=== PATIENT | male | born 1945 | race Caucasian/White ===

== ENCOUNTER 2016-11-26 12:55 | Inpatient (IN) | payer OTHER, MEDICARE ==
[~2016-11-26] VITALS: Ht 177.8 cm; Wt 118.1 kg
--- NOTE | ~2016-11-26 | H ---
[facility] [place] [address] HISTORY AND PHYSICAL Name: BENJAMIN VÁSQUEZ Room #: 506-1 ADM IN M.R.#: [id number] Admission: 11/26/16 Attend Phys: Chacho Chacon MD Discharge: Date of : 49 Report #: [id number] THIS REPORT FOR: //name// CC: Chacho Blanchard DATE OF SERVICE: 11/26/2016 HISTORY OF PRESENT ILLNESS: The patient is a 70-year-old white male with history of diabetes mellitus, originally admitted with syncope was noted to be in septic shock. He was in acute respiratory failure, noninvasive positive pressure ventilation, noted to have acute renal failure. He had a kidney biopsy that showed acute tubular necrosis and has needed hemodialysis. He had atrial fibrillation, was placed on a Cardizem drip, converting to normal sinus rhythm. He was noted to have a left-sided retroperitoneal bleed. He had thrombocytopenia with hematology involved. He is noted to have medical complexity with generalized debilitation and has now been admitted for acute in-hospital inpatient rehabilitation. PAST MEDICAL HISTORY: Includes a pacemaker for bradycardia, history of hypertension, hyperlipidemia, cholecystectomy, TNA and he had a history of obstructive sleep apnea and was on CPAP at 4 liters at bedtime. ALLERGIES: No known drug allergies. HABITS: Former smoker five cigarette a day for 25 years, remote history of increased alcohol use. SOCIAL HISTORY: Lives in the house with his , 2 steps in, did not utilize any gait aids. 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 is noted to be essentially retired as well. She was working before, but had noted she could take some time off and present to assist him. REVIEW OF SYSTEMS: No current complaints of chest pain, shortness of breath or abdominal discomfort. No focal extremity pain complaints. PHYSICAL EXAMINATION: GENERAL: A 70-year-old white male in no obvious distress. The patient is alert. VITAL SIGNS: Last recorded temperature is 97.9, pulse 107, respirations 24, blood pressure 152/95. HEENT: Appeared to be benign. NEUROLOGIC: Cranial nerves are grossly intact. Facies are symmetric. He is currently on 5 liters nasal cannula. CHEST: Some decreased breath sounds diffuse. CARDIAC: Sounded regular rate and rhythm. [facility] [address] [place] [address] HISTORY AND PHYSICAL Name: BENJAMIN VÁSQUEZ Room #: 506-1 ADM IN .R.#: [id number] Admission: 11/26/16 Attend Phys: Chacho Chacon MD Discharge: Date of : 47 Report #: [id number] ABDOMEN: Bowel sounds positive, nontender. He is mildly obese. GENITOURINARY AND RECTAL: Deferred. EXTREMITIES: He has functional range of motion of both upper extremities with strength grade 4 to 4-/5. DTRs are trace to 1. Lower extremities, no focal calf swelling, functional range of motion with strength grade 4-/5. DTRs are trace to 1. He does need assistance with basic functional mobility skills. ASSESSMENT: 1. Medical complexity with generalized debilitation. 2. Sepsis. 3. Acute respiratory failure with respiratory acidosis. He continues on high dose nasal prong O2. 4. Syncopal episode. 5. Atrial fibrillation with rapid ventricular rate, which converted to normal sinus rhythm. 6. Acute renal failure with hemodialysis as per Nephrology. 7. Left retroperitoneal bleed. 8. Thrombocytopenia with Hematology involved. 9. Obstructive sleep apnea, on CPAP. PLAN: The patient is admitted for acute in-hospital inpatient rehabilitation. From a postadmission physician evaluation perspective, there are no relevant changes since the preadmission screening. Please see the above review of prior and current medical and functional conditions and comorbidities. Please see the patient's previous and current functional status. As far as risk of complications, the patient has multiple medical comorbidities as noted above. Initial plan of care involves the interdisciplinary acute inpatient rehabilitation program with the goal of maximizing the patient's functional independence, so that he can hopefully return back to his prior living situation. Prognosis is reasonably good with estimated length of stay, probably at least the next 7-10 days, pending progress with likely longer if warranted with his medical comorbidities. Potential barriers would include his multiple medical comorbidities and decreased functional status. The patient meets diagnostic criteria for an acute in-hospital inpatient rehabilitation stay. He meets medical necessity criteria. He does have appropriate tolerance for therapies and has appropriate discharge goals back to the home setting. Again, there are no relevant changes since the preadmission screening. <ELECTRONICALLY SIGNED> By: Chacho Chacon MD 12/03/16 1105 0936 1052 Chacho Chacon MD /[facility]
--- NOTE | ~2016-11-26 | HC ---
[facility] [place] [address] CONSULTATION Name: BENJAMIN VÁSQUEZ Room #: 506-1 ADM IN M.R.#: [id number] Admission: 11/26/16 Attend Phys: Chacho Chacon MD Discharge: Date of : 47 Report #: [id number] THIS REPORT FOR: //name// CC: Chacho Blanchard DATE OF SERVICE: 12/01/2016 ATTENDING PHYSICIAN: Chacho Chacon M.D. DEVELOPMENT DISABILITY SPECIALIST: Irwin Nick, PhD CLINICAL PRESENTATION: The patient is a 71-year-old male, admitted to the rehabilitation unit at [facility] for comprehensive inpatient rehabilitation program to improve functional mobility, activities of daily living and self-care and mental status secondary to medical complexity with generalized debilitation. His diagnoses include sepsis, acute respiratory failure with respiratory acidosis, syncopal episode, atrial fibrillation with rapid ventricular rate converted to normal sinus rhythm, acute renal failure on hemodialysis, left retroperitoneal bleed, thrombocytopenia and obstructive sleep apnea. The patient was at home with his when he is reported to have become unresponsive. 911 was called and he was subsequently admitted to the hospital for evaluation and treatment. The patient is amnestic regarding his initial hospitalization and stay. A complete description of his medical condition and history along with medications can be found in his medical record. Neuropsychological consultation was requested to provide assistance in the assessment of cognitive and emotional status and to provide recommendations and services. Prior to this most recent admission, he was living independently with his in their home. He reports being independent with instrumental activities of daily living including driving. 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 He is a college graduate with a degree in literature. The patient has two children. He does not have a history of treatment for depression or anxiety. TECHNIQUES UTILIZED: Clinical interview, review of medical records, staff consultation and behavioral observation, Mini Mental Status Exam 2 standard version, calibrated ideational fluency assessment (letter and category fluency). EXAMINATION FINDINGS: The patient was alert and cooperative with the assessment. He does not present with aphasia. There is no report of auditory or visual hallucinations. He was alert and oriented. Current symptoms include decreased energy level with tiredness, fatigue and shortness of breath, and difficulty with sleep from pain. He does not report difficulty with memory or general cognition. However, reduced verbal fluency is reported, although he [address] [address] CONSULTATION Name: BENJAMIN VÁSQUEZ Room #: [address] [place] [address] IN ..#: [id number] Admission: 11/26/16 Attend Phys: Chacho Chacon MD Discharge: Date of : 47 Report #: [id number] it is within normal limits. He denies subjective depression, but does report increased anxiety in regard to his medical well being. His performance on the MMSE 2 brief version is within normal limits with a raw score of 16/16. Performance on the MMSE 2 standard version is within normal limits with a raw score of 29/30. The patient had difficulty with copying a simple geometric design. Clock drawing was within normal limits. Letter fluency is in the average range with a raw score of 26, T score of 44, percentile rank of 27. Category fluency is extremely low with a raw score of 27, T score 28, percentile rank of 1. Overall verbal fluency is in the borderline range with a T score of 34, and percentile rank of 5. The patient is alert and oriented. However, deficits in verbal fluency are suggested. The implications of variability in verbal fluency are difficulty with higher level executive functioning. DIAGNOSTIC IMPRESSION: Mild neurocognitive disorder, unspecified, without behavior disorder. Adjustment disorder with anxious mood. RECOMMENDATIONS: The patient will benefit from continued psychological support to assist in the management of anxiety. The use of relaxation strategies, reassurance and educational information about his medical condition will help alleviate anxiety. Providing him with written instructions and educational information regarding his medical condition will provide a degree of reassurance and subjective control. Followup neuropsychological testing is indicated prior to his return to instrumental activities of daily living. Educational information regarding his medical care will be necessary for his to the exent of her assisting in the management of medication and nutrition upon his return to home. Thank you very much for allowing me to provide the consultation on this patient. <ELECTRONICALLY SIGNED> By: Irwin Nick, PhD 12/01/16 1502 1246 1314 Irwin Ncik, PhD /nt
--- NOTE | ~2016-11-26 | EKG ---
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 : 1945 Requested By: Bassem Sparrow Order Number: [id number] MD: Warner Anguiano Measurements Intervals [place] Rate: 83 P: 0 NC: 57 QRS: 5 QRSD: 83 T: 64 QT: 380 QTc: 447 Interpretive Statements Sinus rhythm Short NC interval Consider right atrial enlargement Nonspecific T abnrm, anterolateral leads Compared to ECG 11/27/2016 10:04:30 Short NC interval now present T-wave abnormality no longer present Electronically Signed On 12-03-2016 23:04:52 CDT by Warner Anguiano [email or web address] <ELECTRONICALLY SIGNED> By: Warner Anguiano MD 12/03/16 2304 Warner Anguiano MD /EPI
--- NOTE | ~2016-11-26 | EKG ---
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
--- NOTE | ~2016-11-26 | EKG ---
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 : 1945 Requested By: Bassem Sparrow Order Number: [id number] MD: Warner Anguiano Measurements Intervals [place] Rate: 98 P: 14 TN: 175 QRS: 3 QRSD: 84 T: 12 QT: 332 QTc: 424 Interpretive Statements Sinus rhythm Borderline T abnormalities, inferior leads Compared to ECG 11/23/2016 08:05:09 T-wave abnormality now present Atrial fibrillation no longer present Electronically Signed On 11-27-2016 11:20:28 CDT by Warner Anguiano [email or web address] <ELECTRONICALLY SIGNED> By: Warner Anguiano MD 11/27/16 1120 100 Warner Anguiano MD /EPI
--- NOTE | ~2016-11-26 | PLAN ---
[facility] [place] [address] REHAB UNIT PLAN OF CARE Name: BENJAMIN VÁSQUEZ Room #: 506-1 ADM IN M.R.#: [id number] Admission: 11/26/16 Attend Phys: Chacho Chacon MD Discharge: Date of : 47 Report #: [id number] THIS REPORT FOR: //name// CC: Chacho Blanchard DATE OF SERVICE: 11/29/2016 PROGRESS NOTE/OVERALL PLAN OF CARE SUBJECTIVE: The patient is seen back today in followup. He is in no distress. Temperature 98.3, pulse 84, respirations 18, blood pressure 128/87. He is on nasal prong O2, 5 liters. Transfers are standby assistance with gait 250 feet front-wheeled walker. In occupational therapy, upper body dressing is min assist, lower body dressing is max assist. He appears cooperative. ASSESSMENT: 1. Medical complexity with generalized debilitation. 2. Sepsis. 3. Acute respiratory failure with respiratory acidosis. 4. Syncopal episode. 5. Atrial fibrillation with rapid ventricular rate, which converted to normal sinus rhythm. 6. Acute renal failure with hemodialysis. 7. Left retroperitoneal bleed. 8. Thrombocytopenia. 9. Obstructive sleep apnea. PLAN: The overall plan of care is based on the preadmission screen, post-admission physician evaluation and information garnered from therapy assessments. 1. Estimated length of stay is probably 7-10 days or likely longer with his multiple medical comorbidities. We will need to see how he further improves. 2. Medical prognosis is reasonably good. 3. Anticipated interventions includes the interdisciplinary acute inpatient rehabilitation program with PT and OT, working with him, rehab nursing assisting regarding medication management, skin care prophylaxis, bowel and bladder issues and nursing education. marketing automation manager will be involved as well as the interdisciplinary rehabilitation team. The multiple reporting consultant physicians are involved. 4. Anticipated functional outcomes would be for him to be modified independent, ambulating at least at a walker level to get back to the home setting. Goal is also to be independent with basic ADLs. 5. Discharge destination would be back home with . 6. Expected therapy by discipline includes PT and OT 1-1/2 hours per day each five days a week throughout the duration [place] [address] REHAB UNIT PLAN OF CARE Name: BENJAMIN VÁSQUEZ Room #: 506-1 [facility] IN [facility].#: [id number] Admission: 11/26/16 Attend Phys: Chacho Chacon MD Discharge: Date of : 47 Report #: [id number]. ADDENDUM: The patient did miss some therapy on Friday due to dialysis. <ELECTRONICALLY SIGNED> By: Chacho Chacon MD 12/03/16 1108 0938 0139 Chacho Chacon MD /PMT
[~2016-11-26 12:55] MED LIST: ALEVE220 MG PO; APAP650 PO; AZOR 5-40 MG T1 EACH PO; CALCIUM 600 +1 EAC1 PO; CEFDINIR300 MG PO; CENTRUM SILVER1 EAC2 PO; CRESTOR40 MG PO; DILTIAZEM 24HR240 M1 PO; DUONEB 2.5-0.5 M3 ML INH; ENOXAPARIN150 MG/11 SUBQ; FOCUS FACTOR PO; MAGNESIUM PO; METOPROLOL SUCC50 MG PO; NYSTATIN100000 UNI SWISH&SPIT; OMEGA 3 FISH O1 EACH PO; OMEPRAZOLE 20 M20 M1 PO; PACERONE 200 M200 M1 PO; PRESERVISION A1 EAC2 PO; REQUIP 1 MG TABL1 M1 PO; SAW PALMETTO160 MG PO; VITAMIN B-12500 MCG PO; VITAMINC500 PO
[2016-11-26 20:50] VITALS: BP 152/95
[2016-11-27 06:31] LABS: ALBUMIN 2.5 g/dL (3.4-5.0); CALCIUM 8.5 mg/dL (8.5-10.1); CREATININE 7.2 mg/dL (0.7-1.3); PHOSPHORUS 7.4 mg/dL (2.5-4.9); POTASSIUM 5.1 mmol/L (3.5-5.1)
[2016-11-27 09:00] VITALS: BP 148/71
[2016-11-27 19:49] VITALS: BP 142/75
[2016-11-28 08:00] VITALS: BP 129/80
[2016-11-28 20:05] VITALS: BP 128/87
[2016-11-29 03:54] LABS: ABSOLUTE NEUTROPHILS 4.7 thou/uL (1.4-8.2); BASOPHILS 2.1 % (0.0-2.0); EOSINOPHILS 3.8 % (0.0-3.0); HEMATOCRIT 26.6 % (42.0-52.0); LYMPHOCYTES 15.9 % (24.0-44.0); MCH 30.6 pg (26.0-34.0); MCHC 33.9 g/dL (28.0-37.0); MCV 90.1 fL (80.0-100.0); MONOCYTES 9.1 % (1.0-8.0); PLATELET COUNT 445 thou/uL (150-400); POLYS 69.1 % (36.0-66.0); RBC 2.95 mil/uL (4.50-6.00); RDW 12.8 % (10.5-14.5); WBC 6.9 thou/uL (4.0-11.0)
[2016-11-29 03:57] LABS: MANUAL DIFF NO
[2016-11-29 04:04] LABS: ALBUMIN 2.6 g/dL (3.4-5.0); CALCIUM 8.4 mg/dL (8.5-10.1); MAGNESIUM 2.1 mg/dL (1.8-2.4); PHOSPHORUS 5.2 mg/dL (2.5-4.9); POTASSIUM 4.4 mmol/L (3.5-5.1)
[2016-11-29 04:05] LABS: CREATININE 5.6 mg/dL (0.7-1.3)
[2016-11-29 08:15] VITALS: BP 145/80
[2016-11-29 21:18] VITALS: BP 150/85
[2016-11-30 08:00] VITALS: BP 141/84
[2016-11-30 20:02] VITALS: BP 151/85
[2016-12-01 07:02] LABS: ALBUMIN 2.6 g/dL (3.4-5.0); CALCIUM 8.5 mg/dL (8.5-10.1); PHOSPHORUS 3.9 mg/dL (2.5-4.9); POTASSIUM 4.5 mmol/L (3.5-5.1)
[2016-12-01 07:03] LABS: CREATININE 4.2 mg/dL (0.7-1.3)
[2016-12-01 08:31] VITALS: BP 155/81
[2016-12-01 15:16] LABS: ABSOLUTE NEUTROPHILS 5.2 thou/uL (1.4-8.2); BASOPHILS 1.3 % (0.0-2.0); EOSINOPHILS 2.9 % (0.0-3.0); HEMOGLOBIN 8.8 gm/dL (14.0-18.0); LYMPHOCYTES 9.6 % (24.0-44.0); MCH 30.6 pg (26.0-34.0); MCV 89.9 fL (80.0-100.0); MONOCYTES 8.2 % (1.0-8.0); PLATELET COUNT 454 thou/uL (150-400); RBC 2.89 mil/uL (4.50-6.00); WBC 6.7 thou/uL (4.0-11.0)
[2016-12-01 15:19] LABS: MANUAL DIFF NO
[2016-12-01 19:50] VITALS: BP 149/69
[2016-12-02 06:22] LABS: ALBUMIN 2.7 g/dL (3.4-5.0); CALCIUM 8.5 mg/dL (8.5-10.1); POTASSIUM 4.6 mmol/L (3.5-5.1)
[2016-12-02 06:24] LABS: CREATININE 5.3 mg/dL (0.7-1.3)
[2016-12-02 08:15] VITALS: BP 150/93
[2016-12-02 20:18] VITALS: BP 154/83
[2016-12-03 05:56] LABS: HEMOGLOBIN 7.9 gm/dL (14.0-18.0); MCHC 34.5 g/dL (28.0-37.0); MCV 89.9 fL (80.0-100.0); RBC 2.56 mil/uL (4.50-6.00)
[2016-12-03 06:17] LABS: ALBUMIN 2.7 g/dL (3.4-5.0); CALCIUM 8.9 mg/dL (8.5-10.1); CREATININE 5.5 mg/dL (0.7-1.3); PHOSPHORUS 4.2 mg/dL (2.5-4.9); POTASSIUM 4.6 mmol/L (3.5-5.1)
[2016-12-03 08:12] VITALS: BP 152/94
[2016-12-03 20:05] VITALS: BP 149/79
[2016-12-04 05:06] LABS: ABSOLUTE NEUTROPHILS 4.8 thou/uL (1.4-8.2); BASOPHILS 1.1 % (0.0-2.0); EOSINOPHILS 3.8 % (0.0-3.0); HEMATOCRIT 23.1 % (42.0-52.0); HEMOGLOBIN 7.8 gm/dL (14.0-18.0); LYMPHOCYTES 13.1 % (24.0-44.0); MCH 30.4 pg (26.0-34.0); MCHC 33.9 g/dL (28.0-37.0); MCV 89.7 fL (80.0-100.0); MONOCYTES 9.8 % (1.0-8.0); PLATELET COUNT 410 thou/uL (150-400); POLYS 72.2 % (36.0-66.0); RBC 2.58 mil/uL (4.50-6.00); WBC 6.7 thou/uL (4.0-11.0)
[2016-12-04 05:13] LABS: MANUAL DIFF NO
[2016-12-04 05:36] LABS: ALBUMIN 2.7 g/dL (3.4-5.0); CREATININE 5.3 mg/dL (0.7-1.3); MAGNESIUM 1.9 mg/dL (1.8-2.4); PHOSPHORUS 4.5 mg/dL (2.5-4.9); POTASSIUM 4.5 mmol/L (3.5-5.1)
[2016-12-04 07:30] VITALS: BP 150/86
[2016-12-04 13:33] VITALS: BP 150/86
[2016-12-04 20:03] VITALS: BP 144/81
[2016-12-05 04:39] LABS: ALBUMIN 2.9 g/dL (3.4-5.0); CALCIUM 8.6 mg/dL (8.5-10.1); PHOSPHORUS 4.7 mg/dL (2.5-4.9); POTASSIUM 4.2 mmol/L (3.5-5.1)
[2016-12-05 08:05] VITALS: BP 151/87
[2016-12-05 15:13] VITALS: BP 150/86
[2016-12-05 19:49] VITALS: BP 141/77
[2016-12-06 06:37] LABS: HEMATOCRIT 20.8 % (42.0-52.0); HEMOGLOBIN 7.1 gm/dL (14.0-18.0); MCH 30.5 pg (26.0-34.0); MCV 89.7 fL (80.0-100.0); RBC 2.31 mil/uL (4.50-6.00); RDW 13.1 % (10.5-14.5); WBC 5.3 thou/uL (4.0-11.0)
[2016-12-06 06:54] LABS: ALBUMIN 2.7 g/dL (3.4-5.0); CALCIUM 8.9 mg/dL (8.5-10.1); CREATININE 4.7 mg/dL (0.7-1.3); PHOSPHORUS 5.5 mg/dL (2.5-4.9); POTASSIUM 4.1 mmol/L (3.5-5.1)
[2016-12-06] MEDS ORDERED: DEMADEX20 MG PO (07:41)
[2016-12-06] MEDS ORDERED: DILTIAZEM 24HR240 M1 PO (07:41)
[2016-12-06] MEDS ORDERED: PACERONE 200 M200 M1 PO (07:41)
[2016-12-06] MEDS ORDERED: DUONEB 2.5-0.5 M3 ML INH (07:41)
[2016-12-06 07:46] VITALS: BP 133/72
[2016-12-06 11:04] VITALS: BP 150/86
[2016-12-06 13:56] VITALS: BP 150/86
[2016-12-06 14:58] VITALS: BP 150/86
== END 2016-12-06 15:40 | disposition home or self-care (01) | DRG 947 ==
LOC: ENTRNSPT 12-06 15:16 → EDTRNSPTSTS 12-06 15:19
PROVIDERS: Family Medicine; Hospitalist; Internal Medicine Nephrology; Nurse Practitioner; Physical Medicine & Rehabilitation
DX: R53.81 Other malaise (principal); J96.20 Acute and chronic respiratory failure, unspecified whether with hypoxia or hypercapnia; N17.0 Acute kidney failure with tubular necrosis; E87.1 Hypo-osmolality and hyponatremia; E44.0 Moderate protein-calorie malnutrition; S36.892A Contusion of other intra-abdominal organs, initial encounter; D69.6 Thrombocytopenia, unspecified; G47.33 Obstructive sleep apnea (adult) (pediatric); G31.84 Mild cognitive impairment of uncertain or unknown etiology; F43.22 Adjustment disorder with anxiety; I48.91 Unspecified atrial fibrillation; E78.00 Pure hypercholesterolemia, unspecified; N18.9 Chronic kidney disease, unspecified; E11.22 Type 2 diabetes mellitus with diabetic chronic kidney disease; I12.9 Hypertensive chronic kidney disease with stage 1 through stage 4 chronic kidney disease, or unspecified chronic kidney disease; D64.9 Anemia, unspecified; E87.70 Fluid overload, unspecified; X58.XXXA Exposure to other specified factors, initial encounter; Y93.89 Activity, other specified; Y92.89 Other specified places as the place of occurrence of the external cause; Z68.37 Body mass index [BMI] 37.0-37.9, adult; Y99.8 Other external cause status; Z95.0 Presence of cardiac pacemaker; Z90.49 Acquired absence of other specified parts of digestive tract; Z87.891 Personal history of nicotine dependence; Z23 Encounter for immunization
CPT/HCPCS: 10112; 32100

== ENCOUNTER 2017-05-26 17:44 | Inpatient (IN) | payer OTHER, MEDICARE ==
[~2017-05-26] VITALS: Ht 177.8 cm; Wt 119.8 kg
--- NOTE | ~2017-05-26 | HC ---
[facility] [place] [address] CONSULTATION Name: BENJAMIN VÁSQUEZ Room #: 246-P [facility] IN .R.#: [id number] Admission: 05/26/17 Attend Phys: Александр Velasquez DO Discharge: Date of : 47 Report #: [id number] THIS REPORT FOR: //name// CC: Александр Wilburnrick Sofia DATE OF SERVICE: 05/29/2017 REASON FOR CONSULTATION: I was asked to evaluate the patient concerning pneumonia with respiratory failure. HISTORY OF PRESENT ILLNESS: The patient was a 71-year-old with underlying history of coronary artery disease, hypertension, sick sinus syndrome with permanent pacemaker, obstructive sleep apnea and chronic hypoxia requiring 4 liters of oxygen at home. Had dental work performed on the day of admission. He was lying fairly flat during the procedure. When he returned home, he complained of being dizzy. His found him hypoxic and brought him into the Emergency Room. He was delirious and in respiratory failure. He required intubation and mechanical ventilation. Cultures of blood and sputum have shown no growth and normal coleen. He has subsequently been extubated as of yesterday afternoon. Through the night, had worsening hypoxia. He was initially on 4 liters of oxygen, now back up to 8 liters. He has been able to get out of bed. His delirium has improved. He has had increased fluids for his septic episode. Remains edematous. Minimal cough with no sputum production. His dental work was cavity filling with no complications in the mouth. 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 It is noted that he had gastric distention when he presented. He had NG tube suction of his gastric contents at presentation. No fever, chills or sweats. White count has been normal. Sputum culture shows normal coleen. MRSA screen was negative. His treatment has included vancomycin, Levaquin and Zosyn. Prior to his dental procedure, he was doing reasonably well at his baseline respiratory compromise. REVIEW OF SYSTEMS: As noted above with no additions including no rash, nausea, vomiting, diarrhea, dysuria or frequency. Now has indwelling Mohamud catheter. Right upper extremity triple lumen PICC line in place. ALLERGIES: PROCAINE. MEDICATIONS: As noted on his MAR including vancomycin and Zosyn and Levaquin. No corticosteroids. PAST MEDICAL HISTORY: Permanent pacemaker, sick sinus syndrome, hypertension, hyperlipidemia, cholecystectomy, pancreatitis, diverticulitis, tonsillectomy, obstructive sleep apnea, degenerative arthritis, previous sinusitis, an acute EBV infection in November, congestive heart failure, hypertension. [address] [address] CONSULTATION Name: BENJAMIN VÁSQUEZ Room #: 246-P [facility] IN ..#: [id number] Admission: 05/26/17 Attend Phys: Александр Velasquez DO Discharge: Date of : 49 Report #: [id number] FAMILY HISTORY: Noncontributory. SOCIAL HISTORY: He is a past smoker, no significant alcohol intake. PHYSICAL EXAMINATION: VITAL SIGNS: Afebrile and hemodynamically stable. GENERAL: He was alert, sitting up in a chair, on 8 liters of oxygen per nasal cannula. He had 2+ anasarca mostly to his extremities. Alert and cooperative. MOUTH: Unremarkable. NECK: Supple. LUNGS: Consolidation in the bases bilaterally, more predominant on the left. No rub. HEART: Regular without murmur. ABDOMEN: Mildly distended, nontender. No hepatosplenomegaly or mass. EXTERNAL GENITALIA: Unremarkable with indwelling Mohamud catheter. NEUROLOGIC: Nonfocal. He did not have a good recollection to the events leading up to his hospital stay. LABORATORY STUDIES: Chest x-ray: Bilateral lower lobe infiltrates and atelectasis. CT scan of the chest shows the same with more predominant left atelectasis and consolidation. Blood cultures are negative. Sputum culture, normal coleen. Hemoglobin 12.2, WBC 7.2, platelet count 166,000. BNP 185. Sodium 144, potassium 3.4, bicarbonate of 34, creatinine 0.7. Sedimentation rate 5. Urinalysis unremarkable. Vancomycin trough was 16. IMPRESSION: A 71-year-old with underlying coronary disease, hypertension, obstructive sleep apnea with dental work recently performed and suspected aspiration pneumonitis. This was the same scenario that occurred in November after previous dental work as well. In addition, has fluid retention, which also may be a contributor. RECOMMENDATIONS: We will continue with Unasyn as treatment for his pneumonitis. Much of this may be more of a chemical pneumonitis. Also would consider diuresis as able. Follow laboratory studies including chest x-ray, chemistry and CBC. I have discussed with nursing staff and the patient's at the bedside. <ELECTRONICALLY SIGNED> By: Deon Morgan MD 05/30/17 1242 1242 1821 Deon Morgan MD /nt
--- NOTE | ~2017-05-26 | EKG ---
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 05/27/17 0815 1805 04 Immaneul Rosen MD, [facility] /EPI
--- NOTE | ~2017-05-26 | 2DMMODE ---
[facility] [place] [employer] [place] [address] 2 D/M-MODE ECHOCARDIOGRAM Name: BENJAMIN VÁSQUEZ Room #: 246-P [facility] IN ..#: [id number] Admission: 05/26/17 Attend Phys: James Dyer MD Discharge: Date of : 49 Date of Service: 05/27/17 0907 Report #: [id number] THIS REPORT FOR: //name// APPROVED REPORT Study performed: 05/27/2017 08:16:35 EXAM: Comprehensive 2D, Doppler, and color-flow Echocardiogram Patient Location: ICU Room #: [facility] Status: routine BSA: 2.34 HR: 67 bpm BP: 122/64 mmHg Rhythm: NSR Other Information Study Quality: Adequate Technically limited study due to patient in ICU on vent. Indications Respiratory failure. Hx: Afib, fidencio, pacemaker 2D Dimensions RVDd: 41.30 mm LVEF(%): 53.41 (>50%) IVSd: 13.40 (7-11mm) LVOT Diam: 24.88 (18-24mm) LVDd: 50.03 mm PWd: 10.70 (7-11mm) Ascending Ao: 37.95 (22-36mm) LVDs: 36.20 (25-40mm) Aortic Root: 39.34 mm Tam's LVEF: 53.41 % Volumes Left Atrial Volume (Systole) Single Plane 4CH: 64.09 mL Single Plane 2CH: 70.91 mL LA ESV Index: 31.00 mL/m2 Aortic Valve AoV Peak Zeb.: 1.92 m/s AO Peak Gr.: 14.69 mmHg LVOT Max P.83 mmHg LVOT Max V: 1.57 m/s KENNY Vmax: 3.97 cm2 Mitral Valve [facility] [place] [employer] [place] [address] 2 D/M-MODE ECHOCARDIOGRAM Name: BENJAMIN VÁSQUEZ Room #: [address] [place] [address] [place] ..#: [id number] Admission: 05/26/17 Attend Phys: James Dyer MD Discharge: Date of : 49 Date of Service: 05/27/17 0907 Report #: [id number] E/A Ratio: 1.2 MV Decel. Time: 254.78 ms MV E Max Zeb.: 1.41 m/s MV A Zeb.: 1.21 m/s MV PHT: 73.89 ms IVRT: 55.36 ms Pulmonary Valve PV Peak Zeb.: 1.50 m/s PV Peak Gr.: 9.05 mmHg Pulmonary Vein P Vein S: 0.57 m/s P Vein A: 0.31 m/s P Vein D: 0.41 m/s P Vein A Dur.: 129.2 msec P Vein S/D Ratio: 1.39 Tricuspid Valve TR Peak Zeb.: 2.50 m/s RAP Estimate: 15.00 mmHg TR Peak Gr.: 25.10 mmHg PA Pressure: 40.00 mmHg Left Ventricle The left ventricle is normal size. There is normal LV segmental wall motion. Mild basal septal hypertrophy is present. Left ventricular systolic function is normal. LVEF is 60-65%. Moderate diastolic dysfunction is present (pseudonormal filling). Right Ventricle The right ventricle is normal size. The right ventricular systolic function is normal. Pacemaker lead is present in the right ventricle. Atria The left atrium size is normal. Right atrium is at the upper limits of normal. Aortic Valve The aortic valve is normal in structure. No aortic regurgitation is present. There is no aortic valvular stenosis. Mitral Valve Mild-moderate mitral annular calcification. No mitral regurgitation. No evidence of mitral valve stenosis. Tricuspid Valve The tricuspid valve is normal in structure. Mild tricuspid regurgitation. Estimated PAP is 40mmHg. [address] [address] 2 D/M-MODE ECHOCARDIOGRAM Name: BENJAMIN VÁSQUEZ Room #: 246-P [facility] IN [facility].#: [id number] Admission: 05/26/17 Attend Phys: James Dyer MD Discharge: Date of : 49 Date of Service: 05/27/17 0907 Report #: [id number] Pulmonic Valve Pulmonic valve is not well visualized. Trace pulmonic regurgitation. Great Vessels Aortic root is mildly dilated at 3.9cm. The ascending aorta is borderline dilated. IVC is dilated and collapses <50% with inspiration. Pericardium There is no pericardial effusion. <Conclusion> Left ventricular systolic function is normal. There is normal LV segmental wall motion. LVEF is 60-65%. The aortic valve is normal in structure. No aortic regurgitation or stenosis Mild-moderate mitral annular calcification. No mitral regurgitation. Estimated pulmonary artery pressure of 40mmHg There is no pericardial effusion. Pacing wires in right heart <ELECTRONICALLY SIGNED> By: Immanuel Rosen MD, FACC 05/27/17906 6 6 Immanuel Rosen MD, FACC /INF
[~2017-05-26 17:44] MED LIST changes: +DEMADEX20 MG PO
[2017-05-26 17:55] VITALS: BP 161/105
[2017-05-26 17:57] LABS: ABSOLUTE NEUTROPHILS 6.5 thou/uL (1.4-8.2); BASOPHILS 0.8 % (0.0-2.0); EOSINOPHILS 0.3 % (0.0-3.0); HEMATOCRIT 43.6 % (42.0-52.0); HEMOGLOBIN 14.4 gm/dL (14.0-18.0); LYMPHOCYTES 9.4 % (24.0-44.0); MCH 30.8 pg (26.0-34.0); MCHC 33.1 g/dL (28.0-37.0); MONOCYTES 4.6 % (1.0-8.0); PLATELET COUNT 233 thou/uL (150-400); POLYS 84.9 % (36.0-66.0); RBC 4.69 mil/uL (4.50-6.00); RDW 13.5 % (10.5-14.5); WBC 7.6 thou/uL (4.0-11.0)
[2017-05-26 18:07] LABS: ANION GAP 1 mmol/L (7-16); BUN 10 mg/dL (7-18); CALCIUM 9.3 mg/dL (8.5-10.1); CHLORIDE 100 mmol/L (98-107); CO2 40 mmol/L (21-32); CREATININE 1.1 mg/dL (0.7-1.3); GLUCOSE 151 mg/dL (74-106); POTASSIUM 4.4 mmol/L (3.5-5.1); SODIUM 141 mmol/L (136-145)
[2017-05-26 18:17] LABS: TROPONIN-I < 0.04 ng/mL (<0.06)
[2017-05-26] MEDS ORDERED: PACERONE 200 M200 M1 PO (18:17)
[2017-05-26] MEDS ORDERED: DEMADEX20 MG PO (18:17)
[2017-05-26] MEDS ORDERED: BREO ELLIPTA 11 EACH INH (18:20)
[2017-05-26] MEDS ORDERED: AZOR 5-40 MG T1 EACH PO (18:21)
[2017-05-26 18:54] LABS: BE(vivo) 7.6 mmol/L (-2 to +3); HCO3 38.5 mmol/L (22.0-26.0); PO2 83.9 mmHg (80.0-100.0); sO2 94.2 % (92.0-98.0)
[2017-05-26 18:56] LABS: PCO2 87.4 mmHg (35.0-45.0); pH 7.262 (7.360-7.450)
[2017-05-26 20:55] LABS: BE(vivo) 4.7 mmol/L (-2 to +3); HCO3 35.3 mmol/L (22.0-26.0); PO2 78.4 mmHg (80.0-100.0); sO2 92.8 % (92.0-98.0)
[2017-05-26 20:56] LABS: PCO2 83.8 mmHg (35.0-45.0); pH 7.243 (7.360-7.450)
[2017-05-26 22:57] LABS: HCO3 40.9 mmol/L (22.0-26.0); PCO2 60.6 mmHg (35.0-45.0); PO2 72.9 mmHg (80.0-100.0); pH 7.447 (7.360-7.450); sO2 94.8 % (92.0-98.0)
[2017-05-26 23:51] VITALS: BP 123/72
[2017-05-26 23:51] LABS: URINE BILIRUBIN NEGATIVE (Negative); URINE BLOOD NEGATIVE (Negative); URINE CLARITY CLEAR; URINE COLOR YELLOW; URINE GLUCOSE-RANDOM* NEGATIVE (Negative); URINE KETONES NEGATIVE (Negative); URINE LEUKOCYTES-REFLEX NEGATIVE (Negative); URINE NITRITE-REFLEX NEGATIVE (Negative); URINE PROTEIN (DIPSTICK) NEGATIVE (Negative); URINE SPECIFIC GRAVITY 1.015 (1.005-1.035); URINE UROBILINOGEN 0.2 E.U./dl (0.2-1.0)
[2017-05-27] VITALS (64 sets, daily range): BP systolic 102–145; BP diastolic 56–88
[2017-05-27 00:18] LABS: ALBUMIN 3.7 g/dL (3.4-5.0); DIRECT BILIRUBIN 0.2 mg/dL (<0.1-0.3); TOTAL BILIRUBIN 0.6 mg/dL (<0.1-1.0); TOTAL PROTEIN 6.8 g/dL (6.4-8.2)
[2017-05-27 04:34] LABS: CALCIUM 9.1 mg/dL (8.5-10.1); CREATININE 1.1 mg/dL (0.7-1.3); POTASSIUM 3.9 mmol/L (3.5-5.1)
[2017-05-27 04:45] LABS: MCH 30.7 pg (26.0-34.0); MCHC 33.4 g/dL (28.0-37.0); MCV 91.7 fL (80.0-100.0); RBC 4.03 mil/uL (4.50-6.00); RDW 13.4 % (10.5-14.5); WBC 9.2 thou/uL (4.0-11.0)
[2017-05-27 04:58] LABS: HEMOGLOBIN 12.4 gm/dL (14.0-18.0)
[2017-05-27 05:37] LABS: BE(vivo) 13.4 mmol/L (-2 to +3); HCO3 38.2 mmol/L (22.0-26.0); PCO2 48.8 mmHg (35.0-45.0); PO2 90.2 mmHg (80.0-100.0); pH 7.512 (7.360-7.450); sO2 97.5 % (92.0-98.0)
[2017-05-28] VITALS (22 sets, daily range): BP systolic 110–173; BP diastolic 65–96
[2017-05-28 05:02] LABS: HEMATOCRIT 37.1 % (42.0-52.0); HEMOGLOBIN 12.4 gm/dL (14.0-18.0); MCH 30.7 pg (26.0-34.0); MCHC 33.5 g/dL (28.0-37.0); MCV 91.6 fL (80.0-100.0); RBC 4.05 mil/uL (4.50-6.00); RDW 13.4 % (10.5-14.5); WBC 7.3 thou/uL (4.0-11.0)
[2017-05-28 05:10] LABS: BE(vivo) 7.3 mmol/L (-2 to +3); HCO3 35.3 mmol/L (22.0-26.0); PO2 86.6 mmHg (80.0-100.0); pH 7.347 (7.360-7.450); sO2 95.8 % (92.0-98.0)
[2017-05-28 05:10] LABS: CALCIUM 8.2 mg/dL (8.5-10.1); POTASSIUM 3.7 mmol/L (3.5-5.1)
[2017-05-28 05:11] LABS: PCO2 65.9 mmHg (35.0-45.0)
[2017-05-28 10:53] LABS: BE(vivo) 7.3 mmol/L (-2 to +3); HCO3 34.8 mmol/L (22.0-26.0); PCO2 61.7 mmHg (35.0-45.0); PO2 72.5 mmHg (80.0-100.0); pH 7.369 (7.360-7.450); sO2 93.8 % (92.0-98.0)
[2017-05-28 15:15] LABS: BE(vivo) 8.4 mmol/L (-2 to +3); PCO2 63.5 mmHg (35.0-45.0); pH 7.371 (7.360-7.450); sO2 92.8 % (92.0-98.0)
[2017-05-29] VITALS (24 sets, daily range): BP systolic 125–162; BP diastolic 69–98
[2017-05-29 05:14] LABS: ABSOLUTE NEUTROPHILS 5.2 thou/uL (1.4-8.2); BASOPHILS 0.7 % (0.0-2.0); EOSINOPHILS 4.4 % (0.0-3.0); HEMATOCRIT 36.6 % (42.0-52.0); HEMOGLOBIN 12.2 gm/dL (14.0-18.0); LYMPHOCYTES 13.1 % (24.0-44.0); MCH 30.6 pg (26.0-34.0); MCHC 33.3 g/dL (28.0-37.0); MCV 91.7 fL (80.0-100.0); MONOCYTES 9.3 % (1.0-8.0); PLATELET COUNT 166 thou/uL (150-400); POLYS 72.5 % (36.0-66.0); RBC 3.99 mil/uL (4.50-6.00); RDW 13.2 % (10.5-14.5); WBC 7.2 thou/uL (4.0-11.0)
[2017-05-29 05:21] LABS: CALCIUM 8.4 mg/dL (8.5-10.1); CREATININE 0.7 mg/dL (0.7-1.3); POTASSIUM 3.4 mmol/L (3.5-5.1)
[2017-05-29 07:46] LABS: BE(vivo) 4.3 mmol/L (-2 to +3); HCO3 31.5 mmol/L (22.0-26.0); PCO2 58.5 mmHg (35.0-45.0); PO2 65.9 mmHg (80.0-100.0); pH 7.349 (7.360-7.450); sO2 91.6 % (92.0-98.0)
[2017-05-30] VITALS (18 sets, daily range): BP systolic 117–171; BP diastolic 69–98
[2017-05-30 05:45] LABS: CREATININE 0.7 mg/dL (0.7-1.3); POTASSIUM 3.5 mmol/L (3.5-5.1)
[2017-05-31 04:45] VITALS: BP 133/72
[2017-05-31 07:22] LABS: ABSOLUTE NEUTROPHILS 5.2 thou/uL (1.4-8.2); BASOPHILS 0.7 % (0.0-2.0); HEMOGLOBIN 12.3 gm/dL (14.0-18.0); LYMPHOCYTES 13.5 % (24.0-44.0); MCH 30.7 pg (26.0-34.0); MCHC 33.3 g/dL (28.0-37.0); MCV 92.2 fL (80.0-100.0); MONOCYTES 9.4 % (1.0-8.0); PLATELET COUNT 174 thou/uL (150-400); POLYS 72.4 % (36.0-66.0); RBC 4.02 mil/uL (4.50-6.00); RDW 13.5 % (10.5-14.5); WBC 7.2 thou/uL (4.0-11.0)
[2017-05-31 07:37] LABS: CALCIUM 8.4 mg/dL (8.5-10.1); CREATININE 0.7 mg/dL (0.7-1.3); POTASSIUM 3.7 mmol/L (3.5-5.1)
[2017-05-31 08:39] VITALS: BP 130/80
[2017-05-31 11:33] VITALS: BP 133/72
[2017-05-31 15:25] VITALS: BP 128/71
[2017-05-31 19:14] VITALS: BP 137/68
[2017-06-01 04:34] VITALS: BP 138/74
[2017-06-01 04:43] LABS: ABSOLUTE NEUTROPHILS 3.9 thou/uL (1.4-8.2); BASOPHILS 0.8 % (0.0-2.0); HEMATOCRIT 35.8 % (42.0-52.0); HEMOGLOBIN 12.1 gm/dL (14.0-18.0); LYMPHOCYTES 18.8 % (24.0-44.0); MCH 30.9 pg (26.0-34.0); MCHC 33.7 g/dL (28.0-37.0); MCV 91.8 fL (80.0-100.0); MONOCYTES 10.3 % (1.0-8.0); PLATELET COUNT 203 thou/uL (150-400); POLYS 65.1 % (36.0-66.0); RDW 13.3 % (10.5-14.5); WBC 6.1 thou/uL (4.0-11.0)
[2017-06-01 04:49] LABS: CALCIUM 8.5 mg/dL (8.5-10.1); CREATININE 0.9 mg/dL (0.7-1.3); POTASSIUM 3.4 mmol/L (3.5-5.1)
[2017-06-01 08:22] VITALS: BP 138/59
[2017-06-01 11:59] VITALS: BP 139/73
[2017-06-01 15:44] VITALS: BP 130/57
[2017-06-01 20:35] VITALS: BP 138/80
[2017-06-02 03:37] VITALS: BP 149/86
[2017-06-02 05:29] LABS: ABSOLUTE NEUTROPHILS 3.7 thou/uL (1.4-8.2); BASOPHILS 1.3 % (0.0-2.0); EOSINOPHILS 4.2 % (0.0-3.0); HEMATOCRIT 37.5 % (42.0-52.0); HEMOGLOBIN 12.8 gm/dL (14.0-18.0); LYMPHOCYTES 20.5 % (24.0-44.0); MCH 31.1 pg (26.0-34.0); MCHC 34.1 g/dL (28.0-37.0); MCV 91.1 fL (80.0-100.0); MONOCYTES 11.7 % (1.0-8.0); PLATELET COUNT 228 thou/uL (150-400); POLYS 62.3 % (36.0-66.0); RBC 4.12 mil/uL (4.50-6.00); RDW 13.2 % (10.5-14.5); WBC 5.9 thou/uL (4.0-11.0)
[2017-06-02 05:30] LABS: CALCIUM 8.9 mg/dL (8.5-10.1); CREATININE 0.9 mg/dL (0.7-1.3); POTASSIUM 3.6 mmol/L (3.5-5.1)
[2017-06-02 08:10] VITALS: BP 143/74
[2017-06-02] MEDS ORDERED: AUGMENTIN 875-1 EACH PO (10:45)
[2017-06-02 10:58] VITALS: BP 143/74
[2017-06-02 11:58] VITALS: BP 143/74
== END 2017-06-02 12:55 | disposition home or self-care (01) | DRG 208 ==
LOC: ER 17:44 → EROBS 21:32 → ICU 21:32 → 2N 05-30 14:51 → ENTRNSPT 06-02 12:15 → EDTRNSPTSTS 06-02 12:19 → 2N 06-02 12:55
PROVIDERS: Emergency Medicine; Family Medicine; Hospitalist; Internal Medicine Pulmonary Disease; Nurse Practitioner Family
PROC: 0BH17EZ Insertion of Endotracheal Airway into Trachea, Via Natural or Artificial Opening (ICD-10-PCS; principal; 2017-05-26)
PROC: 5A1935Z Respiratory Ventilation, Less than 24 Consecutive Hours (ICD-10-PCS; principal; 2017-05-26)
PROC: 5A09357 Assistance with Respiratory Ventilation, Less than 24 Consecutive Hours, Continuous Positive Airway Pressure (ICD-10-PCS; principal; 2017-05-26)
PROC: 02H633Z Insertion of Infusion Device into Right Atrium, Percutaneous Approach (ICD-10-PCS; 2017-05-27)
PROC: 5A09357 Assistance with Respiratory Ventilation, Less than 24 Consecutive Hours, Continuous Positive Airway Pressure (ICD-10-PCS; 2017-05-28)
PROC: 5A09357 Assistance with Respiratory Ventilation, Less than 24 Consecutive Hours, Continuous Positive Airway Pressure (ICD-10-PCS; 2017-05-31)
PROC: 5A09357 Assistance with Respiratory Ventilation, Less than 24 Consecutive Hours, Continuous Positive Airway Pressure (ICD-10-PCS; 2017-06-02)
DX: J69.0 Pneumonitis due to inhalation of food and vomit (principal); J96.21 Acute and chronic respiratory failure with hypoxia; J96.22 Acute and chronic respiratory failure with hypercapnia; E87.2 Acidosis; E78.00 Pure hypercholesterolemia, unspecified; G47.33 Obstructive sleep apnea (adult) (pediatric); G25.81 Restless legs syndrome; E78.5 Hyperlipidemia, unspecified; M19.90 Unspecified osteoarthritis, unspecified site; I50.9 Heart failure, unspecified; J98.6 Disorders of diaphragm; I48.0 Paroxysmal atrial fibrillation; I11.0 Hypertensive heart disease with heart failure; R00.1 Bradycardia, unspecified; R41.0 Disorientation, unspecified; J44.9 Chronic obstructive pulmonary disease, unspecified; Z79.899 Other long term (current) drug therapy; Z90.49 Acquired absence of other specified parts of digestive tract; Z88.8 Allergy status to other drugs, medicaments and biological substances; Z95.0 Presence of cardiac pacemaker; Z87.891 Personal history of nicotine dependence
CPT/HCPCS: 10078; 10081; 27000

== ENCOUNTER → 2017-06-13 | Outpatient (CLI) | payer OTHER, MEDICARE ==
[~2017-06-13] MED LIST changes: +AUGMENTIN 875-1 EACH PO; +BREO ELLIPTA 11 EACH INH
== END ==
LOC: RAD 15:56
DX: J18.9 Pneumonia, unspecified organism (principal); I70.0 Atherosclerosis of aorta

== ENCOUNTER → 2017-06-26 | Outpatient (CLI) | payer OTHER, MEDICARE | LOC: SLEEPLAB 21:32 | DX: G47.33 Obstructive sleep apnea (adult) (pediatric) (principal) ==

== ENCOUNTER → 2017-08-07 | Outpatient (CLI) | payer OTHER, MEDICARE | LOC: SLEEPLAB 16:04 | DX: G47.33 Obstructive sleep apnea (adult) (pediatric) (principal); I49.9 Cardiac arrhythmia, unspecified; I10 Essential (primary) hypertension; E11.9 Type 2 diabetes mellitus without complications; E78.5 Hyperlipidemia, unspecified ==

== ENCOUNTER 2018-01-03 04:12 | Inpatient (IN) | payer OTHER, MEDICARE ==
[2018-01-03] VITALS (58 sets, daily range): BP systolic 91–123; BP diastolic 44–69
[~2018-01-03] VITALS: Ht 172.7 cm; Wt 127.9 kg
--- NOTE | ~2018-01-03 | EKG ---
[address] [address] ELECTROCARDIOGRAM REPORT Name: BENJAMIN VÁSQUEZ Room #: 245-P ADM IN M.R.#: [id number] Admission: 01/03/18 Attend Phys: James Dyer MD Discharge: Date of : 49 Report #: [id number] THIS REPORT FOR: //name// [facility] ED Test Date: 2018-01-03 Test Time: 04:25:57 Pat Name: BENJAMIN VÁSQUEZ Department: Room: [facility] Gender: M Chief Credit Officer: JOAQUIN : 1945 Requested By: Crys Kirby Order Number: [id number] MD: Kenton Reynolds Measurements Intervals [place] Rate: 98 P: -18 NC: 186 QRS: 7 QRSD: 104 T: 51 QT: 337 QTc: 431 Interpretive Statements Sinus rhythm Baseline wander in lead(s) III,aVL Compared to ECG 05/26/2017 18:05:16 no significant changes Electronically Signed On 01-04-2018 23:20:26 ADMINISTRATION VICE PRESIDENT by Kenton Reynolds [email or web address] <ELECTRONICALLY SIGNED> By: Kenton Reynolds MD 01/04/18 2280 4 Kenton Reynolds MD /EPI
[2018-01-03 04:29] LABS: BE(vivo) 3.7 mmol/L (-2 to +3); HCO3 33.3 mmol/L (22.0-26.0); PCO2 74.8 mmHg (35.0-45.0); pH 7.266 (7.360-7.450); sO2 93.9 % (92.0-98.0)
[2018-01-03 04:36] LABS: ABSOLUTE NEUTROPHILS 8.4 thou/uL (1.4-8.2); BASOPHILS 0.6 % (0.0-2.0); EOSINOPHILS 0.4 % (0.0-3.0); HEMATOCRIT 41.1 % (42.0-52.0); LYMPHOCYTES 12.6 % (24.0-44.0); MCH 30.9 pg (26.0-34.0); MCHC 34.1 g/dL (28.0-37.0); MCV 90.8 fL (80.0-100.0); MONOCYTES 5.3 % (1.0-8.0); PLATELET COUNT 249 thou/uL (150-400); POLYS 81.1 % (36.0-66.0); RBC 4.52 mil/uL (4.50-6.00); RDW 12.7 % (10.5-14.5); WBC 10.3 thou/uL (4.0-11.0)
[2018-01-03 04:45] LABS: ANION GAP 6 mmol/L (7-16); BUN 15 mg/dL (7-18); CALCIUM 8.3 mg/dL (8.5-10.1); CHLORIDE 97 mmol/L (98-107); CO2 38 mmol/L (21-32); CREATININE 1.1 mg/dL (0.7-1.3); GLUCOSE 172 mg/dL (74-106); POTASSIUM 4.1 mmol/L (3.5-5.1); SODIUM 141 mmol/L (136-145)
[2018-01-03 04:50] LABS: APTT 24.5 Seconds (24.5-32.8); PROTIME 10.3 Seconds (9.3-11.4)
[2018-01-03 04:54] LABS: TROPONIN-I <0.06 ng/mL (<0.06)
[2018-01-03] MEDS ORDERED: AZOR 5-20 MG T1 EACH PO (05:45)
[2018-01-03 06:01] LABS: BE(vivo) 7.3 mmol/L (-2 to +3); HCO3 36.8 mmol/L (22.0-26.0); PO2 86.6 mmHg (80.0-100.0); sO2 95.2 % (92.0-98.0)
[2018-01-03 06:02] LABS: PCO2 77.4 mmHg (35.0-45.0); pH 7.295 (7.360-7.450)
[2018-01-03 08:32] LABS: URINE BILIRUBIN NEGATIVE (Negative); URINE BLOOD NEGATIVE (Negative); URINE CLARITY CLEAR; URINE COLOR YELLOW; URINE GLUCOSE-RANDOM* NEGATIVE (Negative); URINE KETONES NEGATIVE (Negative); URINE LEUKOCYTES-REFLEX NEGATIVE (Negative); URINE NITRITE-REFLEX NEGATIVE (Negative); URINE PROTEIN (DIPSTICK) 1+ (Negative); URINE SPECIFIC GRAVITY 1.025 (1.005-1.035); URINE UROBILINOGEN 0.2 E.U./dl (0.2-1.0)
[2018-01-03 08:44] LABS: CALCIUM 8.3 mg/dL (8.5-10.1); CREATININE 1.2 mg/dL (0.7-1.3); POTASSIUM 4.1 mmol/L (3.5-5.1)
[2018-01-03 08:49] LABS: CASTS None Seen /LPF (None Seen); CRYSTALS None Seen /LPF (None Seen); SQUAMOUS None Seen /LPF (0-3); URINE RBC 3-10 Few /HPF (0-2); URINE WBC-REFLEX 0-5 Rare /HPF (0-5)
[2018-01-03 08:50] LABS: BACTERIA-REFLEX 1-9 Few /HPF (None Seen)
[2018-01-03 09:50] LABS: BE(vivo) 7.4 mmol/L (-2 to +3); HCO3 38.6 mmol/L (22.0-26.0); PCO2 95.1 mmHg (35.0-45.0); PO2 97.5 mmHg (80.0-100.0); pH 7.226 (7.360-7.450); sO2 95.7 % (92.0-98.0)
[2018-01-03 10:41] LABS: BE(vivo) 8.1 mmol/L (-2 to +3); HCO3 40.2 mmol/L (22.0-26.0); PO2 85.3 mmHg (80.0-100.0); sO2 93.4 % (92.0-98.0)
[2018-01-03 10:42] LABS: PCO2 103.2 mmHg (35.0-45.0); pH 7.208 (7.360-7.450)
[2018-01-03 11:45] LABS: PO2 94.8 mmHg (80.0-100.0); sO2 95.7 % (92.0-98.0)
[2018-01-03 11:47] LABS: pH 7.248 (7.360-7.450)
[2018-01-03 16:20] LABS: BE(vivo) 5.8 mmol/L (-2 to +3); HCO3 36.4 mmol/L (22.0-26.0); PO2 83.3 mmHg (80.0-100.0); pH 7.239 (7.360-7.450); sO2 93.7 % (92.0-98.0)
[2018-01-04] VITALS (24 sets, daily range): BP systolic 104–153; BP diastolic 55–83
[2018-01-04 10:38] LABS: BE(vivo) 4.3 mmol/L (-2 to +3); HCO3 28.9 mmol/L (22.0-26.0); PCO2 43.3 mmHg (35.0-45.0); pH 7.443 (7.360-7.450); sO2 96.7 % (92.0-98.0)
[2018-01-05] VITALS (20 sets, daily range): BP systolic 117–158; BP diastolic 72–110
[2018-01-05 06:57] LABS: HEMATOCRIT 39.5 % (42.0-52.0); HEMOGLOBIN 13.1 gm/dL (14.0-18.0); MCH 30.1 pg (26.0-34.0); MCHC 33.2 g/dL (28.0-37.0); MCV 90.7 fL (80.0-100.0); RBC 4.36 mil/uL (4.50-6.00); RDW 12.6 % (10.5-14.5); WBC 9.7 thou/uL (4.0-11.0)
[2018-01-05 06:59] LABS: CALCIUM 8.6 mg/dL (8.5-10.1); CREATININE 0.9 mg/dL (0.7-1.3); POTASSIUM 4.4 mmol/L (3.5-5.1)
[2018-01-06 04:00] VITALS: BP 146/87
[2018-01-06 06:35] LABS: HEMATOCRIT 40.7 % (42.0-52.0); HEMOGLOBIN 13.7 gm/dL (14.0-18.0); MCH 30.4 pg (26.0-34.0); MCHC 33.7 g/dL (28.0-37.0); MCV 90.3 fL (80.0-100.0); RBC 4.51 mil/uL (4.50-6.00); RDW 12.6 % (10.5-14.5)
[2018-01-06 07:05] LABS: ALBUMIN 2.8 g/dL (3.4-5.0); CALCIUM 8.7 mg/dL (8.5-10.1); POTASSIUM 4.1 mmol/L (3.5-5.1)
[2018-01-06 07:49] VITALS: BP 135/85
[2018-01-06 12:00] VITALS: BP 142/86
[2018-01-06 15:30] VITALS: BP 155/84
[2018-01-06 20:00] VITALS: BP 141/80
[2018-01-07 04:00] VITALS: BP 140/86
[2018-01-07 06:42] LABS: ALBUMIN 2.9 g/dL (3.4-5.0); CALCIUM 8.6 mg/dL (8.5-10.1); PHOSPHORUS 3.8 mg/dL (2.5-4.9); POTASSIUM 4.1 mmol/L (3.5-5.1)
[2018-01-07 08:08] VITALS: BP 135/86
[2018-01-07 11:28] VITALS: BP 147/81
[2018-01-07 16:09] VITALS: BP 137/73
[2018-01-07 20:10] VITALS: BP 134/74
[2018-01-08 02:10] LABS: ADENOVIRUS Negative (Negative); INFLUENZA A Negative (Negative); INFLUENZA B Negative (Negative); METAPNEUMOVIRUS Negative (Negative); PARAINFLUENZA 1 Negative (Negative); PARAINFLUENZA 2 Negative (Negative); PARAINFLUENZA 3 Negative (Negative); RHINOVIRUS Negative (Negative); RSV A Negative (Negative); RSV B Negative (Negative)
[2018-01-08 04:30] VITALS: BP 135/84
[2018-01-08 07:33] VITALS: BP 136/86
[2018-01-08] MEDS ORDERED: NOVOLOG100 UNIT/1 SUBQ (08:21)
[2018-01-08] MEDS ORDERED: ENOXAPARIN40 MG/0.1 SUBQ (08:21)
[2018-01-08] MEDS ORDERED: MIRALAX17 GM PO (08:21)
[2018-01-08] MEDS ORDERED: SOLU-MEDRO40 MG/1 M1 IV PUSH (08:21)
[2018-01-08 11:35] VITALS: BP 140/73
== END 2018-01-08 16:05 | DRG 871 ==
LOC: ER 04:12 → 3W 05:40 → EROBS 05:40 → ICU 05:40 → EROBS 05:41 → ER 05:41 → ICU 07:48 → 3W 01-05 22:24
PROVIDERS: Emergency Medicine; Hospitalist; Internal Medicine Pulmonary Disease; Nurse Practitioner Family; Pediatrics
PROC: 5A09357 Assistance with Respiratory Ventilation, Less than 24 Consecutive Hours, Continuous Positive Airway Pressure (ICD-10-PCS; principal; 2018-01-03)
PROC: 5A09357 Assistance with Respiratory Ventilation, Less than 24 Consecutive Hours, Continuous Positive Airway Pressure (ICD-10-PCS; 2018-01-04)
PROC: 5A09357 Assistance with Respiratory Ventilation, Less than 24 Consecutive Hours, Continuous Positive Airway Pressure (ICD-10-PCS; 2018-01-05)
PROC: 5A09357 Assistance with Respiratory Ventilation, Less than 24 Consecutive Hours, Continuous Positive Airway Pressure (ICD-10-PCS; 2018-01-06)
PROC: 5A09357 Assistance with Respiratory Ventilation, Less than 24 Consecutive Hours, Continuous Positive Airway Pressure (ICD-10-PCS; 2018-01-07)
PROC: 5A09357 Assistance with Respiratory Ventilation, Less than 24 Consecutive Hours, Continuous Positive Airway Pressure (ICD-10-PCS; 2018-01-08)
DX: A41.9 Sepsis, unspecified organism (principal); J18.9 Pneumonia, unspecified organism; J96.21 Acute and chronic respiratory failure with hypoxia; J96.22 Acute and chronic respiratory failure with hypercapnia; E87.2 Acidosis; I50.32 Chronic diastolic (congestive) heart failure; Z68.41 Body mass index [BMI] 40.0-44.9, adult; J44.0 Chronic obstructive pulmonary disease with (acute) lower respiratory infection; E78.00 Pure hypercholesterolemia, unspecified; G47.33 Obstructive sleep apnea (adult) (pediatric); G25.81 Restless legs syndrome; I48.2 Chronic atrial fibrillation; I11.0 Hypertensive heart disease with heart failure; E66.01 Morbid (severe) obesity due to excess calories; Z87.891 Personal history of nicotine dependence; Z23 Encounter for immunization; Z95.0 Presence of cardiac pacemaker; Z90.49 Acquired absence of other specified parts of digestive tract; Z88.8 Allergy status to other drugs, medicaments and biological substances
CPT/HCPCS: 10078; 10779; 10879

== ENCOUNTER 2018-01-08 14:18 | Inpatient (IN) | payer OTHER, MEDICARE ==
[~2018-01-08] VITALS: Ht 172.7 cm; Wt 117.9 kg
--- NOTE | ~2018-01-08 | H ---
[facility] [place] [address] HISTORY AND PHYSICAL Name: BENJAMIN VÁSQUEZ Room #: 501-A [facility] IN ..#: [id number] Admission: 01/08/18 Attend Phys: Chacho Chacon MD Discharge: Date of : 49 Report #: [id number] THIS REPORT FOR: //name// CC: Chacho Blanchard DATE OF SERVICE: 01/08/2018 HISTORY OF PRESENT ILLNESS: The patient is a 72-year-old male originally admitted to [facility] on 01/03/2018 with respiratory failure, found to have pneumonia, paralyzed right diaphragm, required BiPAP initially. He has been on 4 liters nasal cannula. He was on nocturnal O2 at home. He was placed on IV steroids, IV antibiotics, followed closely by Pulmonary Medicine. He was noted to have pulmonary rehabilitation needs with medical complexity and generalized debilitation. He was noted to have a decline from his functional premorbid status and has now been admitted for an acute in-hospital inpatient rehabilitation stay. PAST MEDICAL HISTORY: Includes heart disease, hypertension, lung disease, vascular disease. PAST SURGICAL HISTORY: Cholecystectomy, T and A, and permanent pacemaker. MEDICATIONS: Please see the full medication listing. ALLERGIES: PROCAINE. SOCIAL HISTORY: Lives in a house with his , 2 stairs in, one stair into the kitchen, basement and laundry with full flight of stairs. HABITS: Tobacco, quit greater than a year ago. REVIEW OF SYSTEMS: Complains of some shortness of breath with increased activity. No current complaints of chest pain, abdominal discomfort. No focal extremity pain complaints. PHYSICAL EXAMINATION: GENERAL: He is a pleasant 72-year-old white male in no obvious distress. VITAL SIGNS: Temperature 98.2, pulse 74, respirations 16, blood pressure 139/75. He is alert. HEENT: Appeared to be benign. NEUROLOGIC: Cranial nerves are grossly intact. Facies are symmetric. He is currently on 4 liters nasal cannula. CHEST: Decreased breath sounds. CARDIOVASCULAR: Regular rate and rhythm. ABDOMEN: Bowel sounds positive, nontender. [address] [address] HISTORY AND PHYSICAL Name: BENJAMIN VÁSQUEZ Room #: 501-A [facility] IN ..#: [id number] Admission: 01/08/18 Attend Phys: Chacho Chacon MD Discharge: Date of : 49 Report #: [id number] GENITOURINARY AND RECTAL: Deferred. Functional range of motion of both upper extremities. Strength is grade 4-/5. DTRs are trace to 1. LOWER EXTREMITIES: No focal calf swelling. Strength is grade 4-/5. DTRs are trace to 1. Functionally, he has been transferring with contact assistance to standby assistance. He tends to fatigue quickly. Supervision for dressing activities. ASSESSMENT: A 72-year-old white male with the following problem list: 1. Pulmonary rehabilitation. 2. Medical complexity with generalized debilitation. 3. Acute respiratory failure. 4. Pneumonia. 5. Right paralyzed diaphragm. 6. Obstructive sleep apnea. 7. Hypertension. 8. Hyperlipidemia. 9. History of permanent pacemaker. PLAN: The patient is admitted for acute in-hospital inpatient rehabilitation. From a postadmission physician evaluation perspective, there are no relevant changes since the preadmission screening. Please see the above review of prior and current medical and functional conditions and comorbidities. The patient had premorbidly been independent and ambulatory without any gait aids and was going for outpatient pulmonary rehabilitation. He was fully independent with ADLs. As far as risk of complications, the patient has multiple medical comorbidities as noted above. Initial plan of care involves the interdisciplinary acute inpatient rehabilitation program with goal of maximizing his functional independence, so he can have her return back to his prior living situation. Measurable functional goals would be for the patient to become modified independent with transfers, mobility and ADLs, so he can return back to the home setting. Prognosis is reasonably good with estimated length of stay, likely fairly short 7-10 days, pending progress. Potential barriers would include his multiple medical comorbidities and decreased functional status. The patient meets diagnostic criteria for an acute in-hospital inpatient rehabilitation stay. He meets medical necessity criteria and we will have the medical care administrator physicians continue to follow. He does have the tolerance for therapies and has appropriate discharge goals back to the home setting. <ELECTRONICALLY SIGNED> By: Chacho Chacon MD 01/16/18 1031 1105 1121 Chacho Chacon MD /[facility]
--- NOTE | ~2018-01-08 | PLAN ---
[facility] [place] [address] REHAB UNIT PLAN OF CARE Name: BENJAMIN VÁSQUEZ Room #: 501-A [facility] IN ..#: [id number] Admission: 01/08/18 Attend Phys: Chacho Chacon MD Discharge: Date of : 49 Report #: [id number] THIS REPORT FOR: //name// CC: Chacho Blanchard DATE OF SERVICE: 01/10/2018 PROGRESS NOTE/OVERALL PLAN OF CARE SUBJECTIVE: The patient was seen earlier today. Last recorded temperature 36.6, pulse 87, respirations 15, blood pressure 139/76 on 4 liters nasal cannula using CPAP at night. He has been able to tolerate his ADLs. Lower body dressing has been min assist, upper body, min assist. Transfers independent. Gait is standby assistance 250 feet, contact guard to go up to 12 steps. ASSESSMENT: 1. Pulmonary rehabilitation. 2. Medical complexity with generalized debilitation. 3. Acute respiratory failure. 4. Pneumonia. 5. Right paralyzed diaphragm. 6. Obstructive sleep apnea. 7. Hypertension. 8. Hyperlipidemia. 9. History of permanent pacemaker. PLAN: The overall plan of care is based on the preadmission screen, post-admission physician evaluation and information garnered from therapy assessments. 1. Estimated length of stay is probably at least 7 days from admission. 2. Medical prognosis is reasonably good. 3. Anticipated interventions includes the interdisciplinary acute inpatient rehabilitation program. 4. Anticipated functional outcomes would be for the patient to become modified independent with transfers, mobility and ADLs that he can return back to his home setting. 5. Discharge destination would be back home where he lives with his . 6. Expected therapy by discipline includes PT and OT 1-1/2 hours per day each five days a week throughout the duration of the acute inpatient rehabilitation stay. <ELECTRONICALLY SIGNED> By: Chacho Chacon MD 01/16/18 1031 1725 [id number] Chacho Chacon MD /[facility]
--- NOTE | ~2018-01-08 | HC ---
[facility] [place] [address] CONSULTATION Name: BENJAMIN VÁSQUEZ Room #: 501-A [facility] IN [facility].#: [id number] Admission: 01/08/18 Attend Phys: Chacho Chacon MD Discharge: Date of : 49 Report #: [id number] THIS REPORT FOR: //name// CC: Chacho Chacon Germain Garciaton DATE OF SERVICE: 01/11/2018 NEUROBEHAVIORAL STATUS EXAM: ATTENDING PHYSICIAN: Chacho Chacon MD. JEWELRY APPRAISER: Irwin Nick, PhD. CLINICAL PRESENTATION: The patient is a 72-year-old white male admitted to the rehab unit at [facility] for comprehensive inpatient rehabilitation program. He was admitted to the [facility] on 01/03/2018 and acute respiratory failure. He was diagnosed with pneumonia, paralyzed right diaphragm, and requiring a BiPAP. His medical history includes hypertension, heart disease, lung disease and vascular disease. His diagnosis on admission to rehab includes pulmonary rehabilitation, medical complexity with generalized debilitation, acute respiratory failure, pneumonia, right paralyzed diaphragm, obstructive sleep apnea, hypertension, hyperlipidemia and pacemaker placement. A complete description of his medical condition and history along with medications can be found in his medical record. Neuropsychological consultation was requested to provide assistance in the assessment of cognitive and emotional status and to provide recommendations and services. Prior to this most recent admission, he was living independently in his home. 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 He is a college graduate and also completed the [employer]. The patient has 2 children. He is from a large family. He had 10 siblings. Two of his siblings in childbirth and 2 have since . He has 6 living siblings. TECHNIQUES UTILIZED: Clinical interview, review of medical records, staff consultation and behavioral observation, mini mental status exam 2 standard version, verbal fluency assessment (letter and category), clock drawing and brief abstract reasoning test. EXAMINATION FINDINGS: The patient was alert and cooperative with the assessment. There is no evidence of aphasia. His thoughts are logical and goal oriented. There is no evidence of thought disorder. He does not report auditory or visual hallucinations. The patient denies anxiety or depression. He does not report difficulty with sleep, appetite or cognition. [address] [address] CONSULTATION Name: BENJAMIN VÁSQUEZ Room #: 501-A [facility] IN ..#: [id number] Admission: 01/08/18 Attend Phys: Chacho Chacon MD Discharge: Date of : 49 Report #: [id number] His performance on the MMSE 2 brief version is within normal limits with a raw score 16 of 16. Performance on the MMSE 2 standard version is within normal limits with a raw score 29 of 30. He missed one item associated with drawing. He had difficulty copying a simple geometric design. The patient showed impairment in clock drawing to the extent of difficulty with spatial organization and upper extremity dexterity. However, the hands are set at a designated time correctly. Letter fluency is in the average range and within normal limits with a raw score 26, T score of 44, which is at the 27th percentile. Category fluency is in the borderline range with a T score of 35 and a percentile rank of 7. Overall total fluency is low average with a T-score of 38 and percentile rank of 12. Brief abstract reasoning test was within normal limits with a score of 8/8. The patient is alert and oriented. Most areas of cognitive functioning are within normal limits on the brief neuropsych assessment. However, he is showing variability in verbal fluency. Mild to moderate deficits are suggested in category fluency, which is in the assessment of semantic expression. Letter fluency was within normal limits. Overall, total fluency is in the mildly impaired range with deficits that are much greater in category fluency thereby suggesting impaired semantic knowledge and disorder. 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 RECOMMENDATIONS: The patient is presenting with subtle to mild variability in cognition. He does have a diagnosis of respiratory failure, which may be contributing to his presentation. A followup neuropsych assessment is suggested to clarify cognitive functioning. He may benefit from the use of compensatory strategies for areas of decreased cognition. His should assist initially with medication management upon his return home. Driving would be a safety concern at this time. However, further more specific neurocognitive testing is indicated to clarify current levels of cognitive function. Thank you very much for allowing me to provide the consultation on this patient. By: [id number] Irwin Nick, PhD /nt
[~2018-01-08 14:18] MED LIST changes: +AZOR 5-20 MG T1 EACH PO; +ENOXAPARIN40 MG/0.1 SUBQ; +MIRALAX17 GM PO; +NOVOLOG100 UNIT/1 SUBQ; +SOLU-MEDRO40 MG/1 M1 IV PUSH
[2018-01-08 17:14] VITALS: BP 141/78
[2018-01-08 20:40] VITALS: BP 167/87
[2018-01-09 05:48] LABS: HEMATOCRIT 40.8 % (42.0-52.0); HEMOGLOBIN 13.3 gm/dL (14.0-18.0); MCH 29.7 pg (26.0-34.0); MCHC 32.8 g/dL (28.0-37.0); MCV 90.7 fL (80.0-100.0); RBC 4.49 mil/uL (4.50-6.00); RDW 12.7 % (10.5-14.5); WBC 8.6 thou/uL (4.0-11.0)
[2018-01-09 05:56] LABS: POTASSIUM 3.5 mmol/L (3.5-5.1)
[2018-01-09 06:55] VITALS: BP 139/75
[2018-01-09 19:21] VITALS: BP 148/65
[2018-01-10 07:00] VITALS: BP 139/76
[2018-01-10 19:15] VITALS: BP 131/69
[2018-01-11 07:15] VITALS: BP 139/86
[2018-01-11 16:55] VITALS: BP 147/74
[2018-01-12 07:23] VITALS: BP 142/71
[2018-01-12 20:50] VITALS: BP 140/70
[2018-01-13 08:30] VITALS: BP 148/76
[2018-01-13 19:35] VITALS: BP 128/68
[2018-01-14 07:20] VITALS: BP 149/73
[2018-01-14 19:43] VITALS: BP 137/69
[2018-01-15 05:55] LABS: ABSOLUTE NEUTROPHILS 7.1 thou/uL (1.4-8.2); BASOPHILS 0.1 % (0.0-2.0); EOSINOPHILS 0.9 % (0.0-3.0); HEMATOCRIT 40.5 % (42.0-52.0); HEMOGLOBIN 13.6 gm/dL (14.0-18.0); LYMPHOCYTES 13.7 % (24.0-44.0); MCH 30.1 pg (26.0-34.0); MCHC 33.5 g/dL (28.0-37.0); MCV 89.9 fL (80.0-100.0); MONOCYTES 7.8 % (1.0-8.0); PLATELET COUNT 199 thou/uL (150-400); POLYS 77.5 % (36.0-66.0); RDW 13.3 % (10.5-14.5); WBC 9.1 thou/uL (4.0-11.0)
[2018-01-15 06:05] LABS: ANION GAP < 0 mmol/L (7-16); BUN 16 mg/dL (7-18); CHLORIDE 99 mmol/L (98-107); CO2 41 mmol/L (21-32); CREATININE 0.8 mg/dL (0.7-1.3); GLUCOSE 112 mg/dL (74-106); SODIUM 138 mmol/L (136-145)
[2018-01-15 08:22] VITALS: BP 140/64
[2018-01-15 19:59] VITALS: BP 127/62
[2018-01-16 06:17] LABS: ANION GAP < 0 mmol/L (7-16); BUN 13 mg/dL (7-18); CALCIUM 8.2 mg/dL (8.5-10.1); CHLORIDE 101 mmol/L (98-107); CO2 40 mmol/L (21-32); CREATININE 0.8 mg/dL (0.7-1.3); GLUCOSE 115 mg/dL (74-106); POTASSIUM 3.8 mmol/L (3.5-5.1); SODIUM 138 mmol/L (136-145)
[2018-01-16 07:04] VITALS: BP 152/71
[2018-01-16] MEDS ORDERED: PREDNISONE 20 M20 M1 PO (12:11)
[2018-01-16 12:40] VITALS: BP 152/71
== END 2018-01-16 14:00 | disposition home or self-care (01) | DRG 947 ==
LOC: ENTRNSPT 01-16 13:08 → EDTRNSPTSTS 01-16 13:10
PROVIDERS: Hospitalist; Nurse Practitioner; Nurse Practitioner Family
PROC: 5A09357 Assistance with Respiratory Ventilation, Less than 24 Consecutive Hours, Continuous Positive Airway Pressure (ICD-10-PCS; principal; 2018-01-08)
PROC: 5A09357 Assistance with Respiratory Ventilation, Less than 24 Consecutive Hours, Continuous Positive Airway Pressure (ICD-10-PCS; 2018-01-09)
PROC: 5A09357 Assistance with Respiratory Ventilation, Less than 24 Consecutive Hours, Continuous Positive Airway Pressure (ICD-10-PCS; 2018-01-10)
PROC: 5A09357 Assistance with Respiratory Ventilation, Less than 24 Consecutive Hours, Continuous Positive Airway Pressure (ICD-10-PCS; 2018-01-11)
PROC: 5A09357 Assistance with Respiratory Ventilation, Less than 24 Consecutive Hours, Continuous Positive Airway Pressure (ICD-10-PCS; 2018-01-12)
PROC: 5A09357 Assistance with Respiratory Ventilation, Less than 24 Consecutive Hours, Continuous Positive Airway Pressure (ICD-10-PCS; 2018-01-13)
PROC: 5A09357 Assistance with Respiratory Ventilation, Less than 24 Consecutive Hours, Continuous Positive Airway Pressure (ICD-10-PCS; 2018-01-14)
PROC: 5A09357 Assistance with Respiratory Ventilation, Less than 24 Consecutive Hours, Continuous Positive Airway Pressure (ICD-10-PCS; 2018-01-15)
DX: R53.81 Other malaise (principal); J18.9 Pneumonia, unspecified organism; J96.21 Acute and chronic respiratory failure with hypoxia; J96.22 Acute and chronic respiratory failure with hypercapnia; J44.0 Chronic obstructive pulmonary disease with (acute) lower respiratory infection; E66.2 Morbid (severe) obesity with alveolar hypoventilation; G47.33 Obstructive sleep apnea (adult) (pediatric); R73.9 Hyperglycemia, unspecified; E78.5 Hyperlipidemia, unspecified; G31.84 Mild cognitive impairment of uncertain or unknown etiology; I11.0 Hypertensive heart disease with heart failure; I50.9 Heart failure, unspecified; I48.0 Paroxysmal atrial fibrillation; J98.6 Disorders of diaphragm; Z90.49 Acquired absence of other specified parts of digestive tract; Z88.8 Allergy status to other drugs, medicaments and biological substances; Z87.891 Personal history of nicotine dependence; Z68.39 Body mass index [BMI] 39.0-39.9, adult; Z95.0 Presence of cardiac pacemaker; Z23 Encounter for immunization
CPT/HCPCS: 10112

== ENCOUNTER → 2018-12-21 | Outpatient (CLI) | payer OTHER, MEDICARE ==
[~2018-12-21] MED LIST changes: +PREDNISONE 20 M20 M1 PO
== END ==
LOC: RAD 13:29
DX: J98.4 Other disorders of lung (principal); J98.11 Atelectasis; J44.9 Chronic obstructive pulmonary disease, unspecified; Z88.8 Allergy status to other drugs, medicaments and biological substances

== ENCOUNTER → 2019-10-13 | Outpatient (CLI) | payer OTHER, MEDICARE | LOC: SJCVC 13:04 | PROVIDERS: ATTEND Internal Medicine Cardiovascular Disease | DX: I48.91 Unspecified atrial fibrillation (principal); I50.9 Heart failure, unspecified; I11.0 Hypertensive heart disease with heart failure; N17.9 Acute kidney failure, unspecified; E11.9 Type 2 diabetes mellitus without complications; J96.90 Respiratory failure, unspecified, unspecified whether with hypoxia or hypercapnia; R65.21 Severe sepsis with septic shock; E78.00 Pure hypercholesterolemia, unspecified; I49.5 Sick sinus syndrome; E66.01 Morbid (severe) obesity due to excess calories; Z79.899 Other long term (current) drug therapy; Z90.49 Acquired absence of other specified parts of digestive tract; Z95.0 Presence of cardiac pacemaker ==

== ENCOUNTER → 2020-05-05 | Outpatient (CLI) | payer OTHER, MEDICARE | LOC: SJCVCIMAG 08:46 | PROVIDERS: ATTEND Internal Medicine Cardiovascular Disease | DX: I34.0 Nonrheumatic mitral (valve) insufficiency (principal); I49.3 Ventricular premature depolarization; E11.22 Type 2 diabetes mellitus with diabetic chronic kidney disease; I13.2 Hypertensive heart and chronic kidney disease with heart failure and with stage 5 chronic kidney disease, or end stage renal disease; I50.32 Chronic diastolic (congestive) heart failure; N18.6 End stage renal disease; I48.0 Paroxysmal atrial fibrillation; I25.10 Atherosclerotic heart disease of native coronary artery without angina pectoris; E66.9 Obesity, unspecified; R06.00 Dyspnea, unspecified; J44.9 Chronic obstructive pulmonary disease, unspecified; A41.9 Sepsis, unspecified organism; R65.21 Severe sepsis with septic shock; E78.00 Pure hypercholesterolemia, unspecified; I49.5 Sick sinus syndrome; J98.4 Other disorders of lung; G47.33 Obstructive sleep apnea (adult) (pediatric); Z95.0 Presence of cardiac pacemaker; Z87.891 Personal history of nicotine dependence; Z79.899 Other long term (current) drug therapy; Z88.1 Allergy status to other antibiotic agents; Z82.49 Family history of ischemic heart disease and other diseases of the circulatory system; Z90.49 Acquired absence of other specified parts of digestive tract; Z99.2 Dependence on renal dialysis ==

== ENCOUNTER 2020-08-14 14:32 | Emergency (ER) | payer OTHER, MEDICARE ==
[~2020-08-14] VITALS: Ht 175.3 cm; Wt 117.0 kg
[2020-08-14] MEDS ORDERED: TRELEGY ELLIPT1 EACH INH (14:59)
[2020-08-14] MEDS ORDERED: SPIRONOLACTONE25 MG PO (15:00)
[2020-08-14] MEDS ORDERED: HYDROCODON-ACE1 EAC7 PO (16:19)
[2020-08-14 16:55] VITALS: BP 114/68
== END 2020-08-14 16:58 | disposition home or self-care (01) ==
LOC: ER 14:32
DX: S62.616A Displaced fracture of proximal phalanx of right little finger, initial encounter for closed fracture (principal); S00.81XA Abrasion of other part of head, initial encounter; S80.211A Abrasion, right knee, initial encounter; S60.416A Abrasion of right little finger, initial encounter; I10 Essential (primary) hypertension; E78.00 Pure hypercholesterolemia, unspecified; Z98.890 Other specified postprocedural states; Z88.4 Allergy status to anesthetic agent; Z79.899 Other long term (current) drug therapy; W19.XXXA Unspecified fall, initial encounter; Y92.89 Other specified places as the place of occurrence of the external cause; Y99.8 Other external cause status; Y93.89 Activity, other specified

== ENCOUNTER → 2021-01-25 | Outpatient (CLI) | payer OTHER, MEDICARE ==
[~2021-01-25] MED LIST changes: +HYDROCODON-ACE1 EAC7 PO; +SPIRONOLACTONE25 MG PO; +TRELEGY ELLIPT1 EACH INH
== END ==
LOC: RAD 12:22
PROVIDERS: ATTEND Pediatrics
DX: J96.11 Chronic respiratory failure with hypoxia (principal); J98.4 Other disorders of lung; Z95.0 Presence of cardiac pacemaker

== ENCOUNTER → 2021-03-12 | Outpatient (CLI) | payer OTHER, MEDICARE | END | disposition home or self-care (01) | LOC: SJCVC 14:16 | PROVIDERS: ATTEND Internal Medicine Cardiovascular Disease | DX: R94.31 Abnormal electrocardiogram [ECG] [EKG] (principal); I49.5 Sick sinus syndrome; I11.0 Hypertensive heart disease with heart failure; I50.32 Chronic diastolic (congestive) heart failure; G56.80 Other specified mononeuropathies of unspecified upper limb; I48.91 Unspecified atrial fibrillation; E11.9 Type 2 diabetes mellitus without complications; Z95.0 Presence of cardiac pacemaker; Z90.49 Acquired absence of other specified parts of digestive tract; Z88.8 Allergy status to other drugs, medicaments and biological substances; Z87.891 Personal history of nicotine dependence; Z79.899 Other long term (current) drug therapy; Z98.890 Other specified postprocedural states ==